=== PATIENT | male | born 1980 | race Caucasian/White ===

== ENCOUNTER → 2021-12-16 15:08 | Outpatient (CLI) | payer OTHER, MEDICAID, SELFPAY ==
--- NOTE | 2021-12-16 15:15 | US_ITS ---
FINAL REPORT CLINICAL HISTORY: palp MASS on penis-- testicles not scanned FINDINGS: The sonographic imaging of the penis was obtained at the area of interest. No mass is visualized. The corpora appear within normal limits. There is no convincing skin thickening. No fluid collection is identified. IMPRESSION: No mass on the penis at the area of interest. Reviewed, Interpreted and Dictated by Diana Brown MD Transcribed by Cynthia Ngo Authenticated and [facility]
== END ==
PROVIDERS: PCP Nurse Practitioner; Visit Provider Nurse Practitioner
DX: N48.89 Other specified disorders of penis (principal)
CPT/HCPCS: 76870

== ENCOUNTER 2024-02-14 10:35 | Observation (INO) | payer BC, SELFPAY ==
[2024-02-14] VITALS (8 sets, daily range): BP systolic 132–152; BP diastolic 80–103; PULSE 65–97; RESP 17–19; TEMP 36.7–36.9; O2SAT 97–99; BMI 23.4; BMI 23.6
--- NOTE | 2024-02-14 10:30 | ECG_ITS ---
APPROVED REPORT Exam: Resting ECG HR:73 bpm ECG Measurements Heart Rate 73 AXES FL 140 P 62 QRSd 94 QRS 76 QT 372 T 44 QTc 399 Conclusion SINUS RHYTHM NONSPECIFIC T-WAVE ABNORMALITY BORDERLINE ECG Electronically signed by : JANICE BEE, 02/14/2024 16:17:53
--- NOTE | 2024-02-14 10:47 | CT_ITS ---
PROCEDURE INFORMATION: Exam: CTA Chest With Contrast Exam date and time: 02/14/2024 11:17 AM Age: 43 years old Clinical indication: Pain; Radiating; Additional info: Cp to back TECHNIQUE: Imaging protocol: Computed tomographic angiography of the chest with contrast. Exam focused on the arteries. 3D rendering (Not supervised by radiologist): MIP and/or 3D reconstructed images were created by the technologist. Radiation optimization: All CT scans at this facility use at least one of these dose optimization techniques: automated exposure control; mA and/or kV adjustment per patient size (includes targeted exams where dose is matched to clinical indication); or iterative reconstruction. Contrast material: [id number]; Contrast volume: 80 ml; Contrast route: INTRAVENOUS (IV); COMPARISON: No relevant prior studies available. FINDINGS: Pulmonary arteries: No pulmonary embolism. Aorta: Unremarkable. No aortic aneurysm. No aortic dissection. Thyroid: 11 x 10 x 9 mm right lobe thyroid nodule. Lungs: Mild centrilobular emphysema. Pleural spaces: Unremarkable. No pneumothorax. No pleural effusion. Heart: Unremarkable. No cardiomegaly. No pericardial effusion. Lymph nodes: Unremarkable. No enlarged lymph nodes. Kidneys: 4 mm right kidney stone. Bones/joints: Unremarkable. No acute fracture. Soft tissues: Unremarkable. IMPRESSION: 1. No pulmonary embolism. 2. Mild centrilobular emphysema. 3. 11 x 10 x 9 mm right lobe thyroid nodule. COMMENTS: Consistent with the [employer]'s Incidental Findings Committee white paper (J Am Pavel Radiol 2015): In patients aged 35 years and older with an incidental thyroid nodule equal to or greater than 1.[address], MRI or extrathyroidal US, further evaluation with dedicated thyroid US is recommended for patients with normal life expectancy and without comorbidities. For smaller nodules without suspicious features, no further evaluation or follow up is recommended.
--- NOTE | 2024-02-14 10:48 | HMH.EDCP ---
Discharge Plan Disposition Patient Disposition: Home, Self-Care Referrals Follow up/Referrals: Provider,Referral, MD [Referring] - See instructions Clinical Impressions Clinical Impression: Chest pain, Myocardial injury, Thyroid nodule Print Language Print Language: Guamanian Discharge ED Provider: Cyril Eng HPI General Chief Complaint: Chest Pain Stated Complaint: Chest pain Time Seen by Provider: 02/14/24 10:46 History of Present Illness HPI narrative: Patient is a 43-year-old male with no chronic comorbidities, smoker who presents emergency department for evaluation of chest pain. Onset was acute, 1 hour prior to arrival, substernal radiating through to his back. It is not modifiable, moderate to severe in intensity. He has a chronic cough which is at his baseline. No other acute complaints at this time. Related Data Allergies Allergy/AdvReac Type Severity Reaction Status Date / Time Penicillins Allergy Unknown Verified 02/14/24 11:01 allergy reaction [facility] Disclaimer: The information contained in this section may have been updated after the patient was seen, as this information can be updated by other users. Social History Smoking Status: Current every day smoker alcohol intake: never current occupational status: other Travel in the last 8 weeks: None ROS Obtained: Yes Systems reviewed as appropriate & no additional complaints except as documented Physical Exam General General appearance: alert and in no apparent distress Head Head exam: atraumatic and normocephalic Eye Eye exam: Present PERRL ENT ENT exam: Present mucous membranes moist Neck Neck exam: Present normal inspection Chest Chest inspection: Present normal inspection and symmetric chest wall rise Respiratory Respiratory exam: Present normal lung sounds bilaterally; Absent respiratory distress Cardiovascular Cardiovascular exam: Present regular rate and normal rhythm Abdominal Exam Abdominal exam: Present soft; Absent tenderness Extremities Exam Extremities exam: Present normal inspection Neurological Exam Neurological exam: Present alert Psychiatric Psychiatric exam: Present normal affect Skin Skin exam: Present warm and dry HEART Score HEART Score HEART Score assessment performed?: Yes History (anamnesis): Highly suspicious ECG: Normal Age: <45 years Risk factors: 1-2 risk factors Troponin: > 3x normal limit HEART Score: 5 Critical Care Critical Care Time Critical Care Time: No Medical Decision Making Fernandez Inquiry Pt receiving controlled substance: No Vital Signs Vital Signs: 02/14/24 10:35 02/14/24 10:44 02/14/24 11:01 Temperature 98.0 F Temperature Source Oral Pulse Rate 82 72 Pulse Rate [Right] 78 Respiratory Rate 19 Blood Pressure 143/103 H 133/89 Blood Pressure [Right Arm] 133/80 Blood Pressure Mean 124 103 Blood Pressure Mean [Right Arm] 97 Blood Pressure Source [Right Arm] Automatic Cuff 02 Sat by Pulse Oximetry 98 98 99 Oxygen Delivery Method Room Air Room Air Room Air 02/14/24 12:31 02/14/24 13:00 Temperature Temperature Source Pulse Rate 78 69 Pulse Rate [Right] Respiratory Rate Blood Pressure 132/96 H 138/96 H Blood Pressure [Right Arm] Blood Pressure Mean 104 108 Blood Pressure Mean [Right Arm] Blood Pressure Source [Right Arm] 02 Sat by Pulse Oximetry 98 99 Oxygen Delivery Method Room Air Room Air Lab Data Labs: Lab Results 02/14/24 10:35: WBC 8.7, RBC 5.35, Hgb 17.2, Hct 53.8 H, MCV 100.4 H, MCH 32.2 H, MCHC 32.0, RDW 13.3, Plt Count 212, MPV 9.2, Neut % (Auto) 75.6, Lymph % (Auto) 16.8, [place] % (Auto) 4.4, Eos % (Auto) 2.9, Baso % (Auto) 0.3, Neut # (Auto) 6.6, Lymph # (Auto) 1.5, [place] # (Auto) 0.4, Eos # (Auto) 0.3, Baso # (Auto) 0.0, Sodium 135 L, Potassium 3.8, Chloride 108 H, Carbon Dioxide 24, Anion Gap 6.8, BUN 12, Creatinine 0.70, Estimated GFR 123, Est GFR ( Amer) 148, Glucose 124 H, Calcium 9.1, Total Bilirubin 0.5, AST 27, ALT 24, Alkaline Phosphatase 76, Troponin I < 0.01, Total Protein 6.7, Albumin 4.2, Globulin 2.5, Albumin/Globulin Ratio 1.7, HIV 1&2 Antibody Rapid Nonreactive 02/14/24 13:30: Troponin I 0.04 H 02/14/24 10:35 02/14/24 10:35 Response Orders (Tests/Meds): ED MEDICATIONS Discontinued Medications Generic Name Dose Route Start Last Admin Trade Name Freq PRN Reason Stop Dose Admin Acetaminophen 1,000 mg 02/14/24 10:47 02/14/24 11:08 Acetaminophen 500mg Tab PO 02/14/24 10:48 1,000 mg ONCE ONE Administration Aspirin 324 mg 02/14/24 10:47 02/14/24 11:01 Aspirin 81mg Chewable Tablet PO 02/14/24 10:48 Not Given ONCE ONE Belladonna Alkaloids 60 ml 02/14/24 10:47 02/14/24 11:08 Belladonna Alkaloids 60 Ml Ml PO 02/14/24 10:48 60 ml ONCE ONE Administration Iopamidol 80 ml 02/14/24 11:21 02/14/24 11:22 Iopamidol-370 (76%);100ml Bottle IV 02/14/24 11:22 80 ml ONCE ONE Administration Morphine Sulfate 4 mg 02/14/24 10:47 Morphine 4mg/Ml Syringe IV 02/14/24 10:48 ONCE ONE Ondansetron HCl 4 mg 02/14/24 10:47 02/14/24 11:08 Ondansetron 4mg/2ml Vial IV 02/14/24 10:48 4 mg ONCE ONE Administration Sodium Chloride 10 ml 02/14/24 11:21 02/14/24 11:22 Sodium Chloride 0.9% 10ml Syr (Rad Only) IV 02/14/24 11:22 10 ml ONCE ONE Administration Sodium Chloride 50 ml 02/14/24 11:21 02/14/24 11:21 0.9 % Sodium Chloride 50 Ml Vial IV 02/14/24 11:22 50 ml ONCE ONE Administration ORDERS Category Date Time Status CT angio chest - dissection Stat Cat Scan 02/14/24 10:47 Completed Cardiology Consult [Consult to Cardiology] [CONS] Cons 02/14/24 15:19 Ordered Routine CBC w/Auto Diff [Complete Blood Count Auto Diff] Stat Lab 02/14/24 10:35 Completed CMP [Comprehensive Metabolic Panel] Stat Lab 02/14/24 10:35 Completed HIV (1&2) Antibody Rapid Stat Lab 02/14/24 10:35 Completed Hep C Ab with Reflex to RNA Stat Lab 02/14/24 10:35 Received Trop I [Troponin I] Stat Lab 02/14/24 10:35 Completed Troponin I Q3H Lab 02/14/24 13:30 Completed Troponin I Q3H Lab 02/14/24 17:00 Ordered ECG Data Tracing #1: ECG Narrative: Independently interpreted by me rate 73, rhythm is regular, axis normal, no ST elevations or depressions in anatomical contiguous leads, QTc 399. Tracing #2: ECG Narrative: Independently inter by me rate 67, rhythm is irregular, sinus arrhythmia, no ST elevation in anatomical contiguous leads, QTc 388 MDM Narrative Medical Decision Narrative: In summary patient is 43-year-old male past medical history described above who presents emergency department for evaluation of chest pain. Patient is hemodynamically stable nontoxic-appearing upon arrival, afebrile. Differential diagnosis includes ACS, noncardiac chest pain, dissection, among others. Workup will be conducted with hematologic labs, EKG, serial troponins, CTA chest dissection protocol. Inventions include multimodal pain control, nitroglycerin. Initial workup reviewed by me, hematologic labs no significant leukocytosis, initial troponin undetectably low. No LORE or critical electrolyte abnormality. Repeat troponin 0.04 is uptrending, repeat EKG shows no dynamic changes. CTA chest no pulmonary embolism, mild central lobar emphysema, incidental thyroid nodule which will need to be followed up on an outpatient basis. Given uptrending troponin with significant delta patient will be admitted for trending of troponins and cardiology evaluation. Case discussed with hospital medicine regarding management no admit the patient their service for continued evaluation at this time.
[2024-02-14 10:57] LABS: Albumin Level 4.2 g/dl (3.5-5.0); Chloride 108 mmol/L (98-107); Potassium 3.8 mmoL/L (3.5-5.1); Sodium 135 mmol/L (136-145)
[2024-02-14 11:00] LABS: Alanine Aminotransferase 24 U/L (12-78); Albumin/Globulin Ratio 1.7 (1.1-1.8); Alkaline Phosphatase 76 U/L (38-126); Anion Gap 6.8 mEq/L (5-15); Aspartate Amino Transferase 27 U/L (17-59); Bilirubin,Total 0.5 mg/dl (0.2-1.3); Blood Urea Nitrogen 12 mg/dl (9-20); Carbon Dioxide 24 mmol/L (22.0-30.0); Estimated Glomerular Filt Rate 123 ml/min (>60); GFR (African American) 148 ML/MIN (>60); Globulin 2.5 g/dL (1.3-3.2); Glucose 124 mg/dl (74-100); Total Protein,Serum 6.7 g/dl (6.3-8.2)
[2024-02-14 11:01] LABS: Calcium 9.1 mg/dl (8.4-10.2)
[2024-02-14] MEDS: BELLADONNA ALKALOIDS 60 ML ML PO (11:08)
[2024-02-14] MEDS: ACETAMINOPHEN 500MG TAB 1000 MG PO (11:08)
[2024-02-14] MEDS: ONDANSETRON 4MG/2ML VIAL 4 MG IV (11:08)
[2024-02-14 11:21] LABS: Troponin I < 0.01 ng/ml (0.00-0.034)
[2024-02-14] MEDS: 0.9 % SODIUM CHLORIDE 50 ML VIAL IV (11:21)
[2024-02-14] MEDS: SODIUM CHLORIDE 0.9% 10ML SYR (RAD ONLY) 10 ML IV (11:22)
[2024-02-14] MEDS: IOPAMIDOL-370 (76%);100ML BOTTLE 80 ML IV (11:22)
[2024-02-14 11:58] LABS: HIV (1&2) Antibody Rapid NONREACTIVE (NONREACTIVE)
[2024-02-14 12:28] LABS: Basophils % 0.3 % (0.1-2.0); Eosinophils # 0.3 K/mm3 (0.0-0.4); Eosinophils % 2.9 % (0.1-12.0); Hematocrit 53.8 % (42.0-52.0); Hemoglobin 17.2 g/dL (14.1-18.0); Lymphocytes # 1.5 K/mm3 (0.7-4.5); Lymphocytes % 16.8 % (10-50); Mean Corpuscular Hemoglobin 32.2 pg (27.0-31.2); Mean Corpuscular Volume 100.4 fl (80-94); Mean Platelet Volume 9.2 fl (7.4-10.4); Monocytes # 0.4 K/mm3 (0.1-1.0); Monocytes % 4.4 % (1.7-9.3); Neutrophils # 6.6 K/mm3 (1.8-7.8); Neutrophils % 75.6 % (37.0-80.0); Platelet Count 212 K/mm3 (142-424); Red Blood Count 5.35 M/mm3 (4.60-6.20); Red Cell Distribution Width 13.3 % (11.5-17.5); White Blood Count 8.7 K/mm3 (4.8-10.8)
--- NOTE | 2024-02-14 13:32 | PC.NURSE ---
REPEAT TROP SENT, PT RATES PAIN 1/10
[2024-02-14 14:04] LABS: Troponin I 0.04 ng/ml (0.00-0.034)
--- NOTE | 2024-02-14 14:22 | ECG_ITS ---
APPROVED REPORT Exam: Resting ECG HR:67 bpm ECG Measurements Heart Rate 67 AXES MA 149 P 64 QRSd 93 QRS 68 QT 372 T 39 QTc 388 Conclusion SINUS RHYTHM WITH SINUS ARRHYTHMIA NORMAL ECG Electronically signed by : JANICE BEE, 02/14/2024 16:16:24
--- NOTE | 2024-02-14 15:18 | PC.NURSE ---
[employer] WORKER NOTIFIED OF ADMISSION
--- NOTE | 2024-02-14 15:42 | PC.NURSE ---
REPORT GIVEN TO FREDRICK ARREOLA
[2024-02-14 15:49] LABS: PTT Heparin (inpatient only) 26.1 Seconds (50-75)
[2024-02-14 16:30] LABS: Amphetamine/Metha Screen,Urine Negative ng/ml (<1000); Barbiturates Screen,Urine Positive ng/ml (<200)
[2024-02-14 16:31] LABS: Benzodiazepines Screen,Urine Negative ng/ml (<200)
[2024-02-14 16:32] LABS: Cannabinoid Screen,Urine Negative ng/ml (<50); Cocaine Screen,Urine Negative ng/ml (<300)
[2024-02-14 16:33] LABS: Methadone Screen,Urine Negative ng/ml (<300)
[2024-02-14 16:34] LABS: Opiate Screen,Urine Negative ng/ml (<300); Phencyclidine Screen,Urine Negative ng/ml (<25)
[2024-02-14] MEDS: ATORVASTATIN 40MG TABLET 40 MG PO (16:41)
[2024-02-14 17:31] LABS: Activated Partial Thrombo Time 27.4 seconds (22.8-30.6); INR 1.02 (0.9-1.1); Prothrombin Time 11.4 seconds (10.1-12.5)
--- NOTE | 2024-02-14 17:45 | EXP.HP ---
History of Present Illness *Admission Date: 02/14/24 *Reason for visit:: Chest pain *History of present illness: Mr. Harrison Aviles is a 43-year-old male with a medical history significant for GERD, anxiety, current smoker who presents with left-sided chest pain that began acutely this morning. He states he had just eaten a hot pocket, pizza when the chest pain began all of a sudden. He has had chest pains before that self resolved, but nothing like this. He states it radiated to his left arm and back. No cardiac history, but strong family history of cardiac disease including CABG. Patient states that GI cocktail on route helped symptoms. Currently has mild chest pain, with some radiation to the back. Workup in the ED significant for uptrending troponin from negative to 0.04, EKG not concerning for acute ischemia. Does show sinus arrhythmia. CTA chest unremarkable. Case discussed with ED provider and decision was made to admit patient for NSTEMI. [facility] Disclaimer: The information contained in this section may have been updated after the patient was seen, as this information can be updated by other users. Medical History (Updated 02/14/24 @ 18:02 by Dami Willoughby MD) Kidney stone Surgical History (Updated 02/14/24 @ 15:58 by Karoline Andrade RN) H/O wrist surgery H/O oral surgery H/O shoulder surgery Social History (Updated 02/14/24 @ 15:20 by Cyril Eng MD) Smoking Status: Current every day smoker alcohol intake: never current occupational status: other Travel in the last 8 weeks: None Meds Home Medications and Allergies Home Medications ?Medication ?Instructions ?Recorded ?Confirmed ?Type fluoxetine 20 mg capsule 20 mg PO DAILY 02/14/24 02/14/24 History New Prescriptions to Start Prescriptions: Allergies Allergy/AdvReac Type Severity Reaction Status Date / Time Penicillins Allergy Unknown Verified 02/14/24 11:01 allergy reaction Exam Data for Last 24 hours Vital signs and Labs for Last 24 Hours: Temp Pulse Resp BP Pulse Ox O2 Del Method 98.5 F 65 18 152/101 H 99 Room Air 02/14/24 15:49 02/14/24 15:49 02/14/24 15:49 02/14/24 15:49 02/14/24 13:00 02/14/24 17:00 Laboratory Results - last 24 hr 02/14/24 10:35: WBC 8.7, RBC 5.35, Hgb 17.2, Hct 53.8 H, MCV 100.4 H, MCH 32.2 H, MCHC 32.0, RDW 13.3, Plt Count 212, MPV 9.2, Neut % (Auto) 75.6, Lymph % (Auto) 16.8, [place] % (Auto) 4.4, Eos % (Auto) 2.9, Baso % (Auto) 0.3, Neut # (Auto) 6.6, Lymph # (Auto) 1.5, [place] # (Auto) 0.4, Eos # (Auto) 0.3, Baso # (Auto) 0.0, APTT 26.1 L, Sodium 135 L, Potassium 3.8, Chloride 108 H, Carbon Dioxide 24, Anion Gap 6.8, BUN 12, Creatinine 0.70, Estimated GFR 123, Est GFR ( Amer) 148, Glucose 124 H, Calcium 9.1, Total Bilirubin 0.5, AST 27, ALT 24, Alkaline Phosphatase 76, Troponin I < 0.01, Total Protein 6.7, Albumin 4.2, Globulin 2.5, Albumin/Globulin Ratio 1.7, HIV 1&2 Antibody Rapid Nonreactive 02/14/24 13:30: Troponin I 0.04 H 02/14/24 13:50: Urine Opiates Screen Negative, Urine Methadone Screen Negative, Ur Barbituates Screen Positive H, Ur Phencyclidine Scrn Negative, Ur Amphetamines Screen Negative, U Benzodiazepines Scrn Negative, Urine Cocaine Screen Negative, U Marijuana (THC) Screen Negative 02/14/24 17:05: PT 11.4, INR 1.02, APTT 27.4 I & O for Last 24 hours: Intake & Output 02/11/24 02/12/24 02/13/24 02/14/24 23:59 23:59 23:59 23:59 Intake Total 240 / 240 Balance 240 / 240 Weight 72.121 kg Constitutional Constitutional: no acute distress *Routine HEENT Exam Head: Present normocephalic Eye: Present EOMI and PERRL ENT: Present mucous membranes moist *Routine Neck Exam Neck: Present supple; Absent lymphadenopathy *Routine Respiratory Exam Respiratory: Present CTA bilaterally *Routine Cardiovascular Exam Cardiovascular: Present RRR *Routine Abdominal Exam Abdominal: Present soft and normoactive bowel sounds; Absent tenderness *Routine Rectal Exam Rectal:: deferred *Routine Genitalia Exam Genitalia:: deferred *Routine Extremities Exam Extremities: Absent cyanosis, clubbing or edema *Routine Skin Exam Skin: Present warm; Absent rash *Routine Neurological Exam Neurological: Present alert and oriented X3 Assessment and Plan *Assessment and plan (1) Thyroid nodule: Status: Acute Category: Medical Code(s): E04.1 - Nontoxic single thyroid nodule (2) NSTEMI (non-ST elevated myocardial infarction): Status: Acute Category: Medical Code(s): I21.4 - Non-ST elevation (NSTEMI) myocardial infarction (3) GERD (gastroesophageal reflux disease): Status: Acute Category: Medical Code(s): K21.9 - Gastro-esophageal reflux disease without esophagitis (4) Anxiety: Status: Acute Category: Medical Code(s): F41.9 - Anxiety disorder, unspecified (5) Chest pain: Status: Acute Category: Medical Code(s): R07.9 - Chest pain, unspecified Plan Mr. Harrison Aviles is a 43-year-old male with a medical history significant for GERD, anxiety, current smoker who presents with left-sided chest pain that began acutely this morning. He states he had just eaten a hot pocket, pizza when the chest pain began all of a sudden. He has had chest pains before that self resolved, but nothing like this. He states it radiated to his left arm and back. No cardiac history, but strong family history of cardiac disease including CABG. Patient states that GI cocktail on route helped symptoms. Currently has mild chest pain, with some radiation to the back. Workup in the ED significant for uptrending troponin from negative to 0.04, EKG not concerning for acute ischemia. Does show sinus arrhythmia. CTA chest unremarkable. Case discussed with ED provider and decision was made to admit patient for NSTEMI. #Chest pain #NSTEMI #GERD ? Left-sided chest pain with radiation to the left shoulder, back improved with GI cocktail on route and in the ED. However, patient does have a longstanding history of smoking. ? Symptoms may very well be related to acute GERD flare given patient had hot pocket, pizza immediately before chest pain began. He has had chest pains like this before that resolved. ? Troponins initially negative to 0.04. EKG unremarkable ischemic findings. Sinus arrhythmia. ? IV heparin drip for 48 hours, can be discontinued if NSTEMI is lower on the suspicion tomorrow. ? Aspirin 81 mg, atorvastatin 40 mg ? Restratification with A1c, TSH, lipid panel. ? Follow-up ECHO. ? Protonix 40 mg daily. ? Mylanta as needed. ? Cardiology consulted, pending recommendations #Thyroid nodule ? 11 x 10 x 9 mm right lobe thyroid nodule on chest CT. ? Follow-up TSH. ? Will need further evaluation outpatient endocrinology. Plan to refer upon discharge. #Anxiety ? Resumed home fluoxetine. CODE STATUS: Full code DVT prophylaxis: Heparin drip Diet: Cardiac
[2024-02-14] MEDS: NICOTINE 21MG/24HR PATCH 21 MG TD (18:00)
[2024-02-14] MEDS: HEPARIN SODIUM 5,000 UNIT/ML VIAL 4000 UNIT IV ×2 (18:00→23:34)
[2024-02-14] MEDS: HEPARIN SODIUM,PORCINE/D5W 500 ML 18 UNIT IV (18:01)
[2024-02-14] MEDS: ASPIRIN EC 81MG TABLET 81 MG PO (18:09)
[2024-02-14 18:28] LABS: Troponin I 0.81 ng/ml (0.00-0.034)
--- NOTE | 2024-02-14 18:29 | PC.NURSE ---
lab called with critical troponin of 0.81.hospitalist made aware. no new orders at this time.
[2024-02-14] MEDS: PANTOPRAZOLE 40MG TABLET 40 MG PO (20:42)
[2024-02-14] MEDS: FAMOTIDINE 20MG TABLET 20 MG PO (20:42)
[2024-02-14 23:18] LABS: PTT Heparin (inpatient only) 39.6 Seconds (50-75)
--- NOTE | 2024-02-14 23:24 | PC.NURSE ---
Edith from [facility] called to adjust pt heparin drip due to PTT results of 39.6. Pt is to receive Heparin 4000 unit bolus and drip adjusted from 900 units (18 ml/hr) to 1200 units (24 ml/hr).
[2024-02-15] VITALS: BP 140/88; PULSE 60; PULSE 77; RESP 16; TEMP 36.8; O2SAT 97
[2024-02-15 04:00] VITALS: BP 149/97; PULSE 60; PULSE 85; RESP 18; TEMP 37; O2SAT 98; BMI 23.3
--- NOTE | 2024-02-15 05:06 | PC.NURSE ---
Pt is A&Ox4 and tolerating RA well. Pt denies chest pain and remains on Heparin drip (1200 units -24 ml/hr). Pt last APTT was 39.5, drip was adjusted per pharmacy. Pt has slept well this shift and has had no other acute changes this shift. Pt denies pain and needs at this time
[2024-02-15 06:38] LABS: Chloride 108 mmol/L (98-107); Potassium 3.8 mmoL/L (3.5-5.1); Sodium 135 mmol/L (136-145)
[2024-02-15 06:39] LABS: PTT Heparin (inpatient only) 62.6 Seconds (50-75)
[2024-02-15 06:41] LABS: Anion Gap 4.8 mEq/L (5-15); Blood Urea Nitrogen 9 mg/dl (9-20); Carbon Dioxide 26 mmol/L (22.0-30.0); Creatinine Clearance Estimated 137 mL/min (50-200); Estimated Glomerular Filt Rate 123 ml/min (>60); GFR (African American) 148 ML/MIN (>60); Glucose 105 mg/dl (74-100)
[2024-02-15 08:00] VITALS: BP 134/98; PULSE 67; PULSE 70; RESP 18; TEMP 37.6; O2SAT 99
--- NOTE | 2024-02-15 08:22 | HMH.PHAINT1 ---
Pharmacy Intervention Comments: MEDICATION RECONCILIATION COMPLETED ON PATIENT USING EXTERNAL FILL HISTORY FROM PHARMACY. -GUERITA ISABEL, MEÑOD
[2024-02-15] MEDS: FAMOTIDINE 20MG TABLET 20 MG PO (08:39)
[2024-02-15] MEDS: FLUOXETINE 20MG CAPSULE 20 MG PO (08:39)
[2024-02-15] MEDS: ASPIRIN EC 81MG TABLET 81 MG PO (08:39)
--- NOTE | 2024-02-15 08:47 | HMH.PHAHEP ---
[facility] Pharmacy Heparin Dosing Demographic Data Admission date:: 02/14/24 Date: 02/15/24 Time: 08:47 Allergies Allergy/AdvReac Type Severity Reaction Status Date / Time Penicillins Allergy Unknown Verified 02/14/24 11:01 allergy reaction Height: 1.75 m Weight: 71.7 kg Indication Medication therapy:: Heparin Current Active Problems (Updated 02/14/24 @ 18:02 by Dami Willoughby MD) Anxiety (Acute) GERD (gastroesophageal reflux disease) (Acute) NSTEMI (non-ST elevated myocardial infarction) (Acute) Thyroid nodule (Acute) Myocardial injury (Acute) Chest pain (Acute) CVA?: No Bleeding problem?: No Kidney disease?: No OK?: No Desired PTT range:: 50-75 seconds Labs Anticoagulation Lab Results:: 02/14/24 10:35 Hgb 17.2 Hct 53.8 H Plt Count 212 Monitoring Dose Monitor 1: Date: 02/14/24 Time: 17:05 PTT Result:: 27.4 (BASELINE) Infusion Rate:: 900 UNITS/HR Comment:: 4,000 UNIT BOLUS Dose Monitor 2: Date: 02/14/24 Time: 22:50 PTT Result:: 39.6 Infusion Rate:: INCREASE RATE TO 1200 UNITS/HR Comment:: 4,000 UNIT BOLUS Dose Monitor 3: Date: 02/15/24 Time: 05:30 PTT Result:: 62.6 Infusion Rate:: 1200 UNITS/HR Core Measures Is INR > or = 2 at discharge?: No Most Recent Labs:: Laboratory Results - last 24 hr 02/14/24 10:35: WBC 8.7, RBC 5.35, Hgb 17.2, Hct 53.8 H, MCV 100.4 H, MCH 32.2 H, MCHC 32.0, RDW 13.3, Plt Count 212, MPV 9.2, Neut % (Auto) 75.6, Lymph % (Auto) 16.8, [place] % (Auto) 4.4, Eos % (Auto) 2.9, Baso % (Auto) 0.3, Neut # (Auto) 6.6, Lymph # (Auto) 1.5, [place] # (Auto) 0.4, Eos # (Auto) 0.3, Baso # (Auto) 0.0, APTT 26.1 L, Sodium 135 L, Potassium 3.8, Chloride 108 H, Carbon Dioxide 24, Anion Gap 6.8, BUN 12, Creatinine 0.70, Estimated GFR 123, Est GFR ( Amer) 148, Glucose 124 H, Calcium 9.1, Total Bilirubin 0.5, AST 27, ALT 24, Alkaline Phosphatase 76, Troponin I < 0.01, Total Protein 6.7, Albumin 4.2, Globulin 2.5, Albumin/Globulin Ratio 1.7, HIV 1&2 Antibody Rapid Nonreactive 02/14/24 13:30: Troponin I 0.04 H 02/14/24 13:50: Urine Opiates Screen Negative, Urine Methadone Screen Negative, Ur Barbituates Screen Positive H, Ur Phencyclidine Scrn Negative, Ur Amphetamines Screen Negative, U Benzodiazepines Scrn Negative, Urine Cocaine Screen Negative, U Marijuana (THC) Screen Negative 02/14/24 17:05: PT 11.4, INR 1.02, APTT 27.4 02/14/24 17:30: Troponin I 0.81 H 02/14/24 22:50: APTT 39.6 L 02/15/24 05:36: APTT 62.6, Sodium 135 L, Potassium 3.8, Chloride 108 H, Carbon Dioxide 26, Anion Gap 4.8 L, BUN 9, Creatinine 0.70, Estimated Creat Clear 137, Estimated GFR 123, Est GFR ( Amer) 148, Glucose 105 H, Calcium 9.0 Were Heparin and Warfarin started on the same day?: No If not, why?: ECHO NORMAL, PATIENT DISCHARGED
[2024-02-15 09:30] LABS: Chol/HDL Ratio 5.5 (1-3.5); Cholesterol 187 mg/dl (140-200); HDL Cholesterol 34 mg/dl (40-60); Triglycerides 91 mg/dl (30-150); VLDL Cholesterol 18 mg/dL (0-40)
--- NOTE | 2024-02-15 09:58 | P.CONCA_ITS ---
History of Present Illness History of Present Illness Consult date: 02/15/24 Requesting physician: Dami Willoughby Consult reason: chest pain Chief complaint: chest pain History of present illness: This is a 43-year-old white male with past medical history of 1 pack/day smoker greater than 20 years and GERD who presented to emergency department with complaints of midsternal chest pain radiating to left shoulder/back and neck that started after eating a pizza hot pocket. Of note, patient was given a GI cocktail and route which significantly helped his symptoms. ED workup showed a negative troponin trending up to 0.81 and EKG was negative for acute ischemic changes. Chest CTA was negative for PE but did show emphysema and a thyroid nodule which primary service is following. Patient reports he has had no further episodes of chest pain or shortness of breath. Official echocardiogram is pending. Labs reviewed and stable. [facility] Disclaimer: The information contained in this section may have been updated after the patient was seen, as this information can be updated by other users. Medical History (Updated 02/14/24 @ 18:02 by Dami Willoughby MD) Kidney stone Surgical History (Updated 02/14/24 @ 15:58 by Karoline Andrade RN) H/O wrist surgery H/O oral surgery H/O shoulder surgery Social History (Updated 02/14/24 @ 15:20 by Cyril Eng MD) Smoking Status: Current every day smoker alcohol intake: never current occupational status: other Travel in the last 8 weeks: None Review of Systems Constitutional Comments: chest pain Exam Data for Last 24 hours Vital signs and Labs for Last 24 Hours: Temp Pulse Resp BP Pulse Ox O2 Del Method 99.6 F 67 18 134/98 H 99 Room Air 02/15/24 08:00 02/15/24 08:00 02/15/24 08:00 02/15/24 08:00 02/15/24 08:00 02/15/24 09:00 Laboratory Results - last 24 hr 02/14/24 10:35: WBC 8.7, RBC 5.35, Hgb 17.2, Hct 53.8 H, MCV 100.4 H, MCH 32.2 H , MCHC 32.0, RDW 13.3, Plt Count 212, MPV 9.2, Neut % (Auto) 75.6, Lymph % (Auto) 16.8, Simpson % (Auto) 4.4, Eos % (Auto) 2.9, Baso % (Auto) 0.3, Neut # (Auto) 6.6, Lymph # (Auto) 1.5, Simpson # (Auto) 0.4, Eos # (Auto) 0.3, Baso # (Auto) 0.0, APTT 26.1 L, Sodium 135 L, Potassium 3.8, Chloride 108 H, Carbon Dioxide 24, Anion Gap 6.8, BUN 12, Creatinine 0.70, Estimated GFR 123, Est GFR ( Amer) 148, Glucose 124 H, Calcium 9.1, Total Bilirubin 0.5, AST 27, ALT 24, Alkaline Phosphatase 76, Troponin I < 0.01, Total Protein 6.7, Albumin 4.2, Globulin 2.5, Albumin/Globulin Ratio 1.7, HIV 1&2 Antibody Rapid Nonreactive 02/14/24 13:30: Troponin I 0.04 H 02/14/24 13:50: Urine Opiates Screen Negative, Urine Methadone Screen Negative, Ur Barbituates Screen Positive H, Ur Phencyclidine Scrn Negative, Ur Amphetamines Screen Negative, U Benzodiazepines Scrn Negative, Urine Cocaine Screen Negative, U Marijuana (THC) Screen Negative 02/14/24 17:05: PT 11.4, INR 1.02, APTT 27.4 02/14/24 17:30: Troponin I 0.81 H 02/14/24 22:50: APTT 39.6 L 02/15/24 05:36: APTT 62.6, Sodium 135 L, Potassium 3.8, Chloride 108 H, Carbon Dioxide 26, Anion Gap 4.8 L, BUN 9, Creatinine 0.70, Estimated Creat Clear 137, Estimated GFR 123, Est GFR ( Amer) 148, Glucose 105 H, Calcium 9.0, Triglycerides 91, Cholesterol 187, VLDL Cholesterol 18, HDL Cholesterol 34 L, Cholesterol/HDL Ratio 5.5 H I & O for Last 24 hours: Intake & Output 02/12/24 02/13/24 02/14/24 02/15/24 23:59 23:59 23:59 23:59 Intake Total 720 / 1050 810 / 810 Output Total 0 / 0 0 / 0 Balance 720 / 1050 810 / 810 Weight 159 lb 13.362 oz 158 lb 1.143 oz Constitutional Constitutional: no acute distress *Routine Respiratory Exam Respiratory: Present CTA bilaterally and symmetric chest movement *Routine Cardiovascular Exam Cardiovascular: Present RRR, Normal S1 and Normal S2 *Routine Abdominal Exam Abdominal: Present soft and normoactive bowel sounds; Absent tenderness *Routine Extremities Exam Extremities: Present full ROM and normal capillary refill; Absent edema *Routine Skin Exam Skin: Present intact, dry and warm Detailed Neck Exam: Thyroids Thyroid: Absent bruit Meds Home Medications and Allergies Home Medications ?Medication ?Instructions ?Recorded ?Confirmed ?Type fluoxetine 20 mg capsule 20 mg PO DAILY 02/14/24 02/14/24 History New Prescriptions to Start Prescriptions: Allergies Allergy/AdvReac Type Severity Reaction Status Date / Time Penicillins Allergy Unknown Verified 02/14/24 11:01 allergy reaction Assessment and Plan *Assessment and plan (1) Anxiety: Status: Acute Category: Medical Code(s): F41.9 - Anxiety disorder, unspecified (2) GERD (gastroesophageal reflux disease): Status: Acute Category: Medical Code(s): K21.9 - Gastro-esophageal reflux disease without esophagitis (3) NSTEMI (non-ST elevated myocardial infarction): Status: Acute Category: Medical Code(s): I21.4 - Non-ST elevation (NSTEMI) myocardial infarction (4) Thyroid nodule: Status: Acute Category: Medical Code(s): E04.1 - Nontoxic single thyroid nodule Plan Chest pain History of GERD Myocardial injury-elevated troponin Initially patient presented with symptoms of chest pain after eating hot pocket-resolved with GI cocktail. Reports I think it was gas. Troponin negative trending up to 0.81 Patient has been on heparin drip Continue aspirin 81 mg p.o. daily and high-dose statin Continue Protonix 40 mg p.o. daily Echocardiogram 02/15/2024 shows normal biventricular systolic function with no regional wall motion abnormalities or significant valvular stenosis or r egurgitation noted Discussed left heart catheterization today versus outpatient stress testing with patient. Patient reports that since he has been symptom-free he would like to proceed with outpatient stress testing if at all possible. Thyroid nodule Defer to primary service Tobacco use Smoking cessation advised CV summary 02/15/2024: Patient remains chest pain-free and denies shortness of breath. Reports has had no further episodes of chest pain since initial episode. Echocardiogram is normal. Recommended outpatient evaluation and stress testing to further evaluate for ischemic disease. Patient is agreeable. Recommend follow-up with Dr. Gómez on Thursday for further evaluation. Cardiac meds: Aspirin 81 mg p.o. daily Atorvastatin 40 mg p.o. daily Protonix 40 mg p.o. daily
[2024-02-15 10:12] LABS: Thyroid Stimulating Hormone 1.45 uIU/mL (0.465-4.68)
[2024-02-15 12:00] VITALS: BP 136/98; PULSE 69; PULSE 90; RESP 18; TEMP 37.1; O2SAT 97
[2024-02-15 12:00] LABS: Direct LDL Cholesterol 137.37 mg/dL (100-129)
[2024-02-15 12:25] LABS: PTT Heparin (inpatient only) 51.5 Seconds (50-75)
[2024-02-15 16:01] LABS: Hemoglobin A1C 5.1 % (4.0-6.0)
--- NOTE | 2024-02-15 18:49 | CA_ITS ---
APPROVED REPORT EXAM: Comprehensive 2D, Doppler, and color-flow Echocardiogram Manager Organizational: Radha Grady RVT Ht: 5 ft 9 in Wt: 159lbs BSA: 1.87 BP: 138/96 mmHg Indications: CP,SMOKER 2D Dimensions IVSd 1.56 cm M: 0.6-1.2 LVEF (Visual) 54.40 % PWd 0.82 cm M: 0.6 - 1.2 LA Volume 26.10 mL LVDd 3.63 cm M: 4.2 - 5.9 LA Volume Index 13.88 mL/m2 (M/F) 16-34 LVDs 2.63 cm M: 2.5 - 4.0 M-Mode Dimensions LA Diam 2.64 cm (1.9-4.0) TAPSE 2.18 (<1.7) LV Diastology E Decel Time 150 (160-240 msec) E/A Ratio 1.1 Aortic Valve JAYSHREE Index 2.05 cm2/m2 AoV Peak Cristhian. 97.0 (50-130 cm/s) AO Peak GR. 3.80 mmHg AO Mean GR. 1.60 (<5 mmHg) AO VTI 15.7 (18-25 cm) JAYSHREE (VTI) 3.94 (2.5-4.5 cm2) Mitral Valve MV E Max Cristhian. 93.0 (40-130 cm/s) MV A Velocity 85.0 (40-130 cm/s) E/A Ratio 1.10 MV PHT 44.0 ms Pulmonary Valve PV Peak Velocity 57.0 (50-150 cm/s) Tricuspid Valve TR P. Velocity 196.00 cm/s RAP Estimate 10.00 mmHg RVSP 25.40 mmHg Left Ventricle The left ventricle is normal size. The left ventricular systolic function is normal. The left ventricular ejection fraction is within the normal range. There is normal left ventricular wall thickness. There is normal LV segmental wall motion. The left ventricular diastolic function is normal. LVEF is 55%. Right Ventricle The right ventricle is normal size. The right ventricular systolic function is normal. Atria The left atrium size is normal. The right atrium size is normal. There is no Doppler evidence of interatrial shunt. Aortic Valve The aortic valve opens well. There is no aortic valvular stenosis. No aortic regurgitation is present. Mitral Valve The mitral valve is normal in structure. No evidence of mitral valve stenosis. Trace mitral regurgitation. Tricuspid Valve Tricuspid valve is grossly normal in structure and function. Trace tricuspid regurgitation. There is insufficient TR jet to estimate RVSP. Pulmonic Valve The pulmonary valve is normal in structure. Trace pulmonic regurgitation. Great Vessels The aortic root is normal in size. The ascending aorta is not well visualized. IVC is normal in size and collapses >50% with inspiration. Pericardium There is no pericardial effusion. Other Information Study Quality: Adequate Conclusion Normal biventricular systolic function. No regional wall motion abnormalities are noted. No significant valvular stenosis or regurgitation. Electronically signed by : Faith Gómez MD 02/15/2024 11:28:47
[2024-02-16 05:10] LABS: HCV Ab Non Reactive (Non Reactive)
--- NOTE | 2024-02-17 11:37 | CARE MANAGER ---
Unable to reach patient to discuss recent discharge. Call attempted X 2 and VM left with call back information.
--- NOTE | 2024-03-02 14:44 | P.DS_ITS ---
General Admission date:: 02/14/24 HPI HPI HPI: Mr. Harrison Aviles is a 43-year-old male with a medical history significant for GERD, anxiety, current smoker who presents with left-sided chest pain that began acutely this morning. He states he had just eaten a hot pocket, pizza when the chest pain began all of a sudden. He has had chest pains before that self resolved, but nothing like this. He states it radiated to his left arm and back. No cardiac history, but strong family history of cardiac disease including CABG. Patient states that GI cocktail on route helped symptoms. Currently has mild chest pain, with some radiation to the back. Workup in the ED significant for uptrending troponin from negative to 0.04, EKG not concerning for acute ischemia. Does show sinus arrhythmia. CTA chest unremarkable. Case discussed with ED provider and decision was made to admit patient for NSTEMI. Hospital Course Hospital Course Hospital Course: Mr. Harrison Aviles is a 43-year-old male with a medical history significant for GERD, anxiety, current smoker who presents with left-sided chest pain that began acutely this morning. He states he had just eaten a hot pocket, pizza when the chest pain began all of a sudden. He has had chest pains before that self resolved, but nothing like this. He states it radiated to his left arm and back. No cardiac history, but strong family history of cardiac disease including CABG. Patient states that GI cocktail on route helped symptoms. Currently has mild chest pain, with some radiation to the back. Workup in the ED significant for uptrending troponin from negative to 0.04, EKG not concerning for acute ischemia. Does show sinus arrhythmia. CTA chest unremarkable. Case discussed with ED provider and decision was made to admit patient for NSTEMI. #Chest pain #NSTEMI #GERD ? Left-sided chest pain with radiation to the left shoulder, back improved with GI cocktail on route and in the ED. However, patient does have a longstanding history of smoking. ? Symptoms might have very well be related to acute GERD flare given patient had hot pocket, pizza immediately before chest pain began. He has had chest pains like this before that resolved. ? Troponins initially negative but peaked to 0.81. EKG unremarkable ischemic findings. Sinus arrhythmia. - Cardiology consulted, started heparin drip. Offered LHC vs outpatient stress test, patient elected for outpatient stress test.? ? TSH and A1c wnl. LDL elevated to 137. ECHO unremarkable. ? Discharged with Protonix 40mg, Aspirin 81 mg, atorvastatin 40 mg - Chest pain free, medically stable for discharge. Will follow-up with cardiology within 1 week. #Thyroid nodule ? 11 x 10 x 9 mm right lobe thyroid nodule on chest CT. ? TSH wnl ? Will follow-up with PCP for further evaluation. #Anxiety ? Resumed home fluoxetine. Exam Data for Last 24 hours Vital signs and Labs for Last 24 Hours: Temp Pulse Resp BP Pulse Ox O2 Del Method 98.7 F 69 18 136/98 H 97 Room Air 02/15/24 12:00 02/15/24 12:00 02/15/24 12:00 02/15/24 12:00 02/15/24 12:00 02/15/24 12:00 Constitutional Constitutional: no acute distress *Routine HEENT Exam Head: Present normocephalic Eye: Present EOMI and PERRL ENT: Present mucous membranes moist *Routine Neck Exam Neck: Present supple; Absent lymphadenopathy *Routine Respiratory Exam Respiratory: Present CTA bilaterally *Routine Cardiovascular Exam Cardiovascular: Present RRR *Routine Abdominal Exam Abdominal: Present soft and normoactive bowel sounds; Absent tenderness *Routine Extremities Exam Extremities: Absent cyanosis, clubbing or edema *Routine Skin Exam Skin: Present warm; Absent rash *Routine Neurological Exam Neurological: Present alert and oriented X3 DS: Diagnosis Discharge Diagnosis (1) Anxiety: Status: Acute Code(s): F41.9 - Anxiety disorder, unspecified (2) GERD (gastroesophageal reflux disease): Status: Acute Code(s): K21.9 - Gastro-esophageal reflux disease without esophagitis (3) NSTEMI (non-ST elevated myocardial infarction): Status: Resolved Code(s): I21.4 - Non-ST elevation (NSTEMI) myocardial infarction (4) Thyroid nodule: Status: Acute Code(s): E04.1 - Nontoxic single thyroid nodule Meds Home Medications and Allergies Home Medications ?Medication ?Instructions ?Recorded ?Confirmed ?Type fluoxetine 20 mg capsule 20 mg PO DAILY 02/14/24 02/14/24 History aspirin 81 mg tablet,delayed 81 mg PO DAILY 30 days #30 tabs 02/15/24 Rx release pantoprazole 40 mg tablet,delayed See Rx Instructions .Route 02/15/24 Rx release .COMPLEX #30 tabs New Prescriptions to Start Prescriptions: aspirin Dami Willoughby pantoprazole Dami Willoughby Allergies Allergy/AdvReac Type Severity Reaction Status Date / Time Penicillins Allergy Unknown Verified 02/17/24 14:25 allergy reaction Discharge Plan Disposition Patient Disposition: Home, Self-Care Condition: Fair Follow up Plan Follow up with: Chio Rowe APRN [Primary Care Provider] - 02/22/24 1:00 pm Kalpesh Gómez MD [Staff Physician] - 02/17/24 2:00 pm Prescriptions/Medication Reconciliation: New aspirin 81 mg Tablet,Delayed Release (Dr/Ec) 81 mg PO DAILY 30 Days Qty: 30 0RF pantoprazole 40 mg Tablet,Delayed Release (Dr/Ec) See Rx Instructions .ROUTE .COMPLEX Qty: 30 0RF Rx Instructions: 40 mg orally on empty stomach every morning. Continued fluoxetine 20 mg capsule 20 mg PO DAILY Patient Comments: TAKE ONE CAPSULE BY MOUTH ONCE DAILY Problem Reconciliation Problems Reviewed?: Yes Patient Discharge Instructions ACTIVITY: Continue current activity DIET: regular diet Additional Instructions: Please follow-up with Dr. Posey on Thursday for stress test. Stand Alone Forms: [facility] Work Release Patient Instructions: DI for Atypical Chest Pain Print Language: Tamazight Providers Primary Care Provider: Chio Rowe Admit Provider: Dami Willoughby Attending Provider: Dami Willoughby
== END 2024-02-15 12:34 | disposition home or self-care (01) ==
LOC: ER 14:49 → 2ND 15:33
PROVIDERS: Admitting Provider Student in an Organized Health Care Education/Training Program; Emergency Provider Emergency Medicine; PCP Nurse Practitioner; Visit Provider Student in an Organized Health Care Education/Training Program
DX: E04.1 Nontoxic single thyroid nodule (principal); F17.210 Nicotine dependence, cigarettes, uncomplicated; K21.9 Gastro-esophageal reflux disease without esophagitis; F41.9 Anxiety disorder, unspecified; Z82.49 Family history of ischemic heart disease and other diseases of the circulatory system; I21.4 Non-ST elevation (NSTEMI) myocardial infarction
CPT/HCPCS: 36415; 71275; 80048; 80053; 80061; 80307; 83036; 84443; 84484; 85025; 85610; 85730; 86803; 87389; 93005; 93306; 99285; G0378; J1644; J2405; Q9967

== ENCOUNTER 2024-03-08 09:50 | Outpatient (CLI) | payer BC, SELFPAY ==
--- NOTE | 2024-03-08 10:32 | US_ITS ---
FINAL REPORT CLINICAL HISTORY: THYROID NODULE COMPARISON: None FINDINGS: Sonographic images of the thyroid gland were obtained. The right thyroid lobe measures 49 mm. in length. The left thyroid lobe measures 51 mm. in length. The thyroid isthmus measures 2 mm. The echogenicity is normal. There is a 1.4 cm in size predominantly cystic mass in the right mid thyroid lobe, septated, with mural and macro calcifications. This is a TI-RADS category 2 nodule. This correlates with the abnormality seen on CT examination from 02/14/2024. There are several other small less than 5 mm in size cysts in the thyroid gland, as well as several small calcifications. IMPRESSION: 1.4 cm in size TI-RADS category 2 nodule in the right mid thyroid lobe, which correlates with the abnormality seen on CT examination from 02/14/2024. This nodule does not require follow-up at this time according to TI-RADS criteria. Reviewed, Interpreted and Dictated by Gerson Gay MD Transcribed by Bambi Baker Authenticated and [facility]
--- NOTE | 2024-03-08 12:03 | CA_ITS ---
APPROVED REPORT Exam: Exercise Treadmill Technologist: Ragini Haddad Ht: 5 ft 9 in Wt: 154 lbs BSA: 1.85 m2 HR: 103 bpm BP: 162/100 mmHg Indications: Chest pain Stress Test Details Test: Tre HR Resting HR: 98 bpm Max Heart Rate (APMHR): 176 bpm Max HR Achieved: 163 bpm Target HR (85% APMHR): 150 bpm % of APMHR: 93 Recovery HR: 116 bpm BP Resting BP: 162.0/100.0 mmHg Max BP: 200.0/100.0 mmHg Recovery BP: 179.0/118.0 mmHg BP response to stress: Abnormal hypertensive response to stress. ECG Resting ECG: Sinus tachycardia Stress EC mm upsloping ST depression Arrhythmia: PVCs Clinical Exercise duration: 09:01 min Highest Stage Achieved: Exercise capacity: 10.1 METs Stress ECG Conclusion Symptoms: Dyspnea, leg fatigue Arrhythmias/Ectopy: PVC ST-T Changes: [address] depression Conclusion: Hypertensive BP response to exercise. Abnormal EKG response to exercise >[address] depression. Test Summary REST . . . . . . . Resting REST 03:24 0.0 0.0 98 . 162/100 . . Stage 1 01:00 10.0 1.7 113 . . . . Stage 1 02:00 10.0 1.7 125 . . . . Stage 1 03:00 10.0 1.7 134 . . . . Stage 2 01:00 12.0 2.5 137 . 170/ 90 . . Stage 2 02:00 12.0 2.5 144 . 170/ 90 . . Stage 2 03:00 12.0 2.5 149 . 190/100 . . Stage 3 01:00 14.0 3.4 155 . . . . Stage 3 02:00 14.0 3.4 161 . . . . Stage 3 03:00 14.0 3.4 163 . 200/100 . . Stage 4 00:01 16.0 4.2 163 . . . Stop exercise at 09:01 RECOVERY 01:00 0.0 0.0 146 . 190/100 . . RECOVERY 02:00 0.0 0.0 130 . 193/113 . . RECOVERY 03:00 0.0 0.0 119 . 193/113 . . RECOVERY 04:00 0.0 0.0 117 . 167/106 . . RECOVERY 05:00 0.0 0.0 114 . 179/118 . . RECOVERY 05:35 0.0 0.0 114 . 179/118 . . Electronically signed by : Faith Gómez MD 03/17/2024 13:05:36
== END 2024-03-08 23:59 | disposition home or self-care (01) ==
LOC: RT 09:51
PROVIDERS: PCP Nurse Practitioner; Visit Provider Internal Medicine
DX: I20.89 Other forms of angina pectoris (principal)
CPT/HCPCS: 76536; 93017; 93018

== ENCOUNTER 2024-05-20 08:56 | Outpatient (CLI) | payer BC, SELFPAY ==
[2024-05-20 07:27] VITALS: BMI 23.4
[2024-05-20 09:11] VITALS: BP 123/79; PULSE 88; RESP 16; O2SAT 98
[2024-05-20] MEDS: IVABRADINE HCL 7.5MG TABLET PO (09:17)
[2024-05-20] MEDS: METOPROLOL TARTRATE 50MG TABLET PO (09:17)
[2024-05-20 09:33] LABS: Chloride 102 mmol/L (98-107)
[2024-05-20 09:34] LABS: Potassium 4.7 mmoL/L (3.5-5.1); Sodium 135 mmol/L (136-145)
[2024-05-20 09:37] LABS: Anion Gap 7.7 mEq/L (5-15); Blood Urea Nitrogen 13 mg/dl (9-20); Calcium 9.5 mg/dl (8.4-10.2); Carbon Dioxide 30 mmol/L (22.0-30.0); Creatinine Clearance Estimated 107 mL/min (50-200); Estimated Glomerular Filt Rate 92 ml/min (>60); GFR (African American) 111 ML/MIN (>60); Glucose 96 mg/dl (74-100)
[2024-05-20 10:30] VITALS: BP 141/85; PULSE 77; RESP 18; O2SAT 97
[2024-05-20] MEDS: NITROGLYCERIN 0.4MG SL TABLET SL (10:30)
[2024-05-20] MEDS: METOPROLOL TARTRATE 5MG/5ML VIAL 5 MG IV (10:30)
[2024-05-20 10:33] VITALS: BP 137/90; PULSE 69; RESP 18; O2SAT 95
[2024-05-20 10:38] VITALS: BP 131/80; PULSE 78; RESP 18; O2SAT 95
[2024-05-20 10:40] VITALS: BP 124/82; PULSE 75; RESP 18; O2SAT 96
[2024-05-20] MEDS: IOPAMIDOL-370 (76%);100ML BOTTLE 85 ML IV (10:41)
[2024-05-20] MEDS: 0.9 % SODIUM CHLORIDE 50 ML VIAL IV (10:41)
[2024-05-20] MEDS: SODIUM CHLORIDE 0.9% 10ML SYR (RAD ONLY) 10 ML IV (10:41)
== END 2024-05-20 10:45 | disposition home or self-care (01) ==
PROVIDERS: PCP Nurse Practitioner; Visit Provider Internal Medicine
DX: R94.30 Abnormal result of cardiovascular function study, unspecified (principal); I21.4 Non-ST elevation (NSTEMI) myocardial infarction
CPT/HCPCS: 75574; 80048; Q9967

== ENCOUNTER 2024-07-08 08:41 | Day surgery (SDC) | payer BC, SELFPAY ==
[2024-07-08] VITALS (11 sets, daily range): BP systolic 107–165; BP diastolic 64–95; PULSE 64–87; RESP 18–20; O2SAT 95–97; BMI 23.6
--- NOTE | 2024-07-08 07:16 | IR_ITS ---
APPROVED REPORT Patient Location: Outpatient Appraiser Timber: FELIPE Cisneros RT (R) PROCEDURES Left heart catheterization Left ventriculogram Selective coronary angiogram INDICATION Abnormal CCTA, Recent non-ST elevation myocardial infarction Informed consent was obtained prior to the procedure. COMPLICATIONS None Estimated Blood Loss: Less than 10 mls TECHNIQUE One percent lidocaine used to anesthetize the right anterior aspect of the wrist. The right radial artery was accessed via the Seldinger technique. A 6 Maltese sheath was placed in the right radial artery. 2.5 mg of Verapamil, 800 mcg of nitroglycerin, 1mg Lidocaine and 5000 U Heparin were given through the arterial sheath. The Maltese JL 3 guide catheter was also used to perform left heart catheterization, left ventriculogram and selective coronary angiogram. At the end of the procedure the sheath was removed good hemostasis was achieved using Traclet band, patient was transferred to the postop holding area in stable condition. ANGIOGRAPHIC RESULTS The left main artery Normal The left anterior descending artery Is proximally normal and then gives rise to a's medium sized first diagonal artery. Distal to the first diagonal artery and first septal integration aide the LAD has a concentric 50 to 60% stenosis followed by a long 40% stenosis which involves a larger but still medium sized second diagonal artery. Distal to the second diagonal artery the LAD has a 40% concentric stenosis. Further down the LAD there is a small myocardial bridge which compresses to 40% during systole. Second diagonal artery which is medium in size has a long ostial proximal 60% stenosis and is maybe 2 mm in diameter The circumflex artery Is a nondominant vessel and has proximal 20% stenoses and then gives rise to a small to medium sized first obtuse marginal artery. Distal to the first obtuse marginal artery the circumflex artery is subtotally occluded and gives rise to 2 small second and third subtotally occluded obtuse marginal arteries. Both obtuse marginal arteries are 1 mm or less in diameter The right coronary artery Is dominant and has proximal 30 and 40% stenosis with an eccentric 40 to 50% stenosis distal to the RV marginal followed by additional distal 40% stenoses. A posterior lateral branch has a mid vessel 70 to 80% stenosis for the vessel is approximately 1.75 mm in diameter. Posterior descending artery has diffuse 20% stenosis The KIM ventriculogram reveals Normal 65% The left ventricular end-diastolic pressure 10 mmHg IMPRESSION Moderate diffuse coronary disease as described above Chronically subtotally occluded small second and third obtuse marginal arteries which are best managed medically Normal ejection fraction Normal LVEDP Unexplained polycythemia PLAN 1. I recommend medical management for the coronary arteries at this time 2. LDL less than 55 to achieve that high intensity statin 3. Avoidance of tobacco products 4. Recommend workup for polycythemia which should include renal ultrasound as well as a sleep study and pulmonary function test 5. Referred to pulmonology and hematology for polycythemia 6. Patient is borderline for therapeutic phlebotomy Electronically signed by : Kurt Myers MD 07/08/2024 10:18:54
[2024-07-08 09:08] LABS: Basophils % 0.4 % (0.1-2.0); Eosinophils # 0.4 K/mm3 (0.0-0.4); Eosinophils % 3.9 % (0.1-12.0); Hematocrit 50.3 % (42.0-52.0); Hemoglobin 17.5 g/dL (14.1-18.0); Lymphocytes # 2.4 K/mm3 (0.7-4.5); Lymphocytes % 24.5 % (10-50); Mean Corpuscular HGB Conc 34.8 g/dL (31.8-35.4); Mean Corpuscular Hemoglobin 31.8 pg (27.0-31.2); Mean Corpuscular Volume 91.5 fl (80-94); Mean Platelet Volume 10.3 fl (7.4-10.4); Monocytes # 0.7 K/mm3 (0.1-1.0); Monocytes % 6.8 % (1.7-9.3); Neutrophils # 6.2 K/mm3 (1.8-7.8); Platelet Count 194 K/mm3 (142-424); Red Cell Distribution Width 12.6 % (11.5-17.5); White Blood Count 9.7 K/mm3 (4.8-10.8)
[2024-07-08 09:28] LABS: Anion Gap 16.1 mEq/L (5-15); Blood Urea Nitrogen 14 mg/dl (9-20); Calcium 9.8 mg/dl (8.4-10.2); Carbon Dioxide 29 mmol/L (22.0-30.0); Chloride 100 mmol/L (98-107); Creatinine Clearance Estimated 108 mL/min (50-200); Estimated Glomerular Filt Rate 92 ml/min (>60); GFR (African American) 111 ML/MIN (>60); Glucose 78 mg/dl (74-100); Potassium 4.1 mmoL/L (3.5-5.1); Sodium 141 mmol/L (136-145)
[2024-07-08] MEDS: diphenhydrAMINE 50MG/ML VIAL 50 MG IV (09:38)
[2024-07-08] MEDS: HEPARIN 1,000 UNITS/500ML NS (CATH LAB) 3000 UNIT IV (09:38)
[2024-07-08] MEDS: HEPARIN 1,000 UNITS/ML 10ML VIAL (CATH LAB) 10000 UNIT IV (09:39)
[2024-07-08] MEDS: LIDOCAINE 1% 10ML MDV 20 ML IJ (09:39)
[2024-07-08] MEDS: VERAPAMIL 2.5MG/ML 2ML VIAL 2.5 MG IV (09:39)
[2024-07-08] MEDS: 0.9 % SODIUM CHLORIDE 500 ML 25 ML IV (09:40)
[2024-07-08] MEDS: FENTANYL 100MCG/2ML VIAL 50 MCG IV (10:08)
[2024-07-08] MEDS: MIDAZOLAM HCL 1MG/ML 5ML VIAL 1 MG IV (10:09)
[2024-07-08] MEDS: IOPAMIDOL-370 (76%);100ML BOTTLE 60 ML IV (11:32)
== END 2024-07-08 13:14 | disposition home or self-care (01) ==
PROVIDERS: PCP Nurse Practitioner; Visit Provider Internal Medicine
DX: I25.10 Atherosclerotic heart disease of native coronary artery without angina pectoris (principal); R94.31 Abnormal electrocardiogram [ECG] [EKG]; R93.1 Abnormal findings on diagnostic imaging of heart and coronary circulation; I25.2 Old myocardial infarction; F17.210 Nicotine dependence, cigarettes, uncomplicated; I10 Essential (primary) hypertension; E78.5 Hyperlipidemia, unspecified; Z79.899 Other long term (current) drug therapy; I77.810 Thoracic aortic ectasia
CPT/HCPCS: 80048; 85025; 93458; 99152; C1725; C1769; J1200; J1644; J2250; J3010; Q9967